=== PATIENT | female | born 1990 | race Asian ===

== ENCOUNTER 2019-01-24 15:34 | Emergency (ER) | payer OTHER ==
[2019-01-24 16:17] LABS: Absolute Lymphocytes (CBC) 2.6 K/uL (0.7-4.9); Basophils % 0.3 % (0-1.3); Hematocrit 40.8 % (36.0-45.0); Lymphocytes % 39.7 % (15.3-44.8); RBC Red Blood Cell Count 4.97 M/uL (3.86-4.86)
[2019-01-24 16:26] LABS: Protime INR 0.97
[2019-01-24 16:32] LABS: Barbiturates NEGATIVE (NEGATIVE); Benzodiazepines NEGATIVE (NEGATIVE); Cocaine NEGATIVE (NEGATIVE); METHAMPHETAM NEGATIVE (NEGATIVE); Methadone NEGATIVE (NEGATIVE); Opiates NEGATIVE (NEGATIVE); Phencyclidine NEGATIVE (NEGATIVE); THC Cannibis NEGATIVE (NEGATIVE)
--- NOTE | 2019-01-24 16:42 | RAD REPORT ---
EXAM DESCRIPTION: RAD - Chest Single View - 01/24/2019 4:34 pm CLINICAL HISTORY: CHEST PAIN Chest pain. COMPARISON: No comparisons FINDINGS: Portable technique limits examination quality. The lungs are grossly clear. The heart is normal in size. No displaced fractures. IMPRESSION: No acute intrathoracic process suspected.
[2019-01-24 16:44] LABS: ALT/SGPT 45 U/L (12-78); AST/SGOT 28 U/L (15-37); Albumin 3.8 g/dL (3.4-5.0); Alkaline Phosphatase 74 U/L (45-117); BUN Blood Urea Nitrogen 5 mg/dL (7-18); Bicarbonate 28 mmol/L (21-32); Bilirubin Direct 0.1 mg/dL (0-0.2); Bilirubin Total 0.5 mg/dL (0.2-1.0); Glucose Level 86 mg/dL (74-106); Magnesium 1.9 mg/dL (1.8-2.4); NT PRO-BNP 26 pg/mL (<125); Potassium 3.7 mmol/L (3.5-5.1); Protein, Total 7.4 g/dL (6.4-8.2); Sodium Level 139 mmol/L (136-145); Troponin (Emerg Dept Use Only) < 0.02 ng/mL (0.0-0.045)
--- NOTE | 2019-01-24 16:51 | EDPHYS ---
Physician Documentation [facility] Name: Renay Ceballos Age: 28 yrs Sex: Female : 1990 Arrival Date: 01/24/2019 Time: 15:37 Bed 7 Private MD: ED Physician Perfecto Tee HPI: 01/24 16:06 This 28 yrs old Female presents to ER via EMS with complaints of Chest Pain. pm1 16:06 The patient or guardian reports chest pain that is located primarily in the anterior pm1 aspect of right upper chest and anterior aspect of left upper chest. The pain does not radiate. Associated signs and symptoms: Pertinent negatives: abdominal pain, cough, dizziness, headache, nausea, palpitations, shortness of breath, vomiting. The chest pain is described as sharp. Modifying factors: the symptoms are aggravated by deep breath, emotionally stressful situations, palpation of area. Severity of pain: in the emergency department the pain is unchanged. The patient has not experienced similar symptoms in the past. Onset 2 days ago. Historical: - Allergies: 15:44 No Known Allergies; sv - PMHx: 15:44 Anxiety; Bipolar disorder; sv - Immunization history:: Adult Immunizations up to date. - Social history:: Smoking status: Patient/guardian denies using tobacco. - Ebola Screening: : No symptoms or risks identified at this time. ROS: 16:06 Constitutional: Negative for fever, chills, and weight loss, Eyes: Negative for injury, pm1 pain, redness, and discharge, ENT: Negative for injury, pain, and discharge, Neck: Negative for injury, pain, and swelling. 16:06 Respiratory: Negative for shortness of breath, cough, wheezing, and pleuritic chest pain, Abdomen/GI: Negative for abdominal pain, nausea, vomiting, diarrhea, and constipation, Back: Negative for injury and pain, : Negative for injury, bleeding, discharge, and swelling, MS/Extremity: Negative for injury and deformity, Skin: Negative for injury, rash, and discoloration, Neuro: Negative for headache, weakness, numbness, tingling, and seizure. 16:06 Cardiovascular: Positive for chest pain, Negative for edema, orthopnea, palpitations. Exam: 16:06 Constitutional: This is a well developed, well nourished patient who is awake, alert, pm1 and in no acute distress. Head/Face: Normocephalic, atraumatic. 16:06 Cardiovascular: Regular rate and rhythm with a normal S1 and S2. No gallops, murmurs, or rubs. Normal PMI, no JVD. No pulse deficits. Respiratory: Lungs have equal breath sounds bilaterally, clear to auscultation and percussion. No rales, rhonchi or wheezes noted. No increased work of breathing, no retractions or nasal flaring. Abdomen/GI: Soft, non-tender, with normal bowel sounds. No distension or tympany. No guarding or rebound. No evidence of tenderness throughout. Back: No spinal tenderness. No costovertebral tenderness. Full range of motion. Skin: Warm, dry with normal turgor. Normal color with no rashes, no lesions, and no evidence of cellulitis. MS/ Extremity: Pulses equal, no cyanosis. Neurovascular intact. Full, normal range of motion. 16:06 Chest/axilla: Inspection: normal, Palpation: tenderness, that is moderate, that totally reproduces the patient's complaints. 16:06 Neuro: Orientation: is normal, Motor: is normal, moves all fours, Gait: is steady, at a normal pace, without difficulty. Vital Signs: 15:44 BP 121 / 101; Pulse 66 MON; Resp 18; Temp 98; Pulse Ox 100% ; Weight 71.21 kg; Height 5 sv ft. 0 in. (152.40 cm); Pain 5/10; 16:35 BP 120 / 90; Pulse 60 MON; Resp 18; Pulse Ox 100% ; sv 15:44 Body Mass Index 30.66 (71.21 kg, 152.40 cm) sv 15:44 Sinus Rhythm sv 16:35 Sinus Rhythm sv MDM: 15:49 Patient medically screened. pm1 16:46 Data reviewed: vital signs. Data interpreted: Pulse oximetry: on room air is 100 %. pm1 Interpretation: normal. Counseling: I had a detailed discussion with the patient and/or guardian regarding: the historical points, exam findings, and any diagnostic results supporting the discharge/admit diagnosis, lab results, radiology results, the need for outpatient follow up, to return to the emergency department if symptoms worsen or persist or if there are any questions or concerns that arise at home. 01/24 15:57 Order name: Basic Metabolic Panel; Complete Time: 16:45 pm1 01/24 15:57 Order name: CBC with Diff; Complete Time: 16:20 pm1 01/24 15:57 Order name: LFT's; Complete Time: 16:45 pm1 01/24 15:57 Order name: Magnesium; Complete Time: 16:45 pm1 01/24 15:57 Order name: NT PRO-BNP; Complete Time: 16:45 pm1 01/24 15:57 Order name: PT-INR; Complete Time: 16:29 pm1 01/24 15:57 Order name: Troponin (emerg Dept Use Only); Complete Time: 16:45 pm1 01/24 15:57 Order name: XRAY Chest (1 view); Complete Time: 17:01 pm1 01/24 15:57 Order name: EKG; Complete Time: 16:06 pm1 01/24 15:57 Order name: UDS; Complete Time: 16:37 pm1 01/24 15:57 Order name: D-Dimer; Complete Time: 16:29 pm1 01/24 16:22 Order name: Urine Dipstick--Ancillary (enter results); Complete Time: 17:22 bd 01/24 16:23 Order name: Urine --Ancillary (enter results); Complete Time: 17:22 bd 01/24 15:57 Order name: Cardiac monitoring; Complete Time: 16:07 pm1 01/24 15:57 Order name: EKG - Nurse/Tech; Complete Time: 15:59 pm1 01/24 15:57 Order name: IV Saline Lock; Complete Time: 16:07 pm1 01/24 15:57 Order name: Labs collected and sent; Complete Time: 16:07 pm1 01/24 15:57 Order name: O2 Per Protocol; Complete Time: 16:07 pm1 01/24 15:57 Order name: O2 Sat Monitoring; Complete Time: 16:07 pm1 01/24 15:57 Order name: Urine Dipstick-Ancillary (obtain specimen); Complete Time: 16:16 pm1 01/24 15:57 Order name: Urine Test (obtain specimen); Complete Time: 16:16 pm1 Administered Medications: 16:50 Drug: TORadol - Ketorolac 15 mg Route: IVP; Site: right antecubital; sv Disposition: 01/25 07:22 Co-signature as Attending Physician, Perfecto Tee MD. rn Disposition: 01/24/19 16:50 Discharged to Home. Impression: Chest pain, unspecified. - Condition is Stable. - Discharge Instructions: Nonspecific Chest Pain. - Prescriptions for Naprosyn 500 mg Oral Tablet - take 1 tablet by ORAL route 2 times per day As needed take with food; 30 tablet. - Work release form, Family Work Release, Medication Reconciliation Form, Thank You Letter, Antibiotic Education, Prescription Opioid Use form. - Follow up: Emergency Department; When: As needed; Reason: Worsening of condition. Follow up: Private Physician; When: 2 - 3 days; Reason: Recheck today's complaints, Continuance of care, Re-evaluation by your physician. - Problem is new. - Symptoms have improved. Signatures: Dispatcher [employer] EDSadia Hoffman RN Cristo Castellanos RN RN sg Nieto, Roman, MD MD rn Marinas, Patrick, MARCIA SPECIAL COLLECTIONS LIBRARIAN pm1 Corrections: (The following items were deleted from the chart) 01/24 17:16 16:50 01/24/2019 16:50 Discharged to Home. Impression: Chest pain, unspecified. sg Condition is Stable. Forms are Medication Reconciliation Form, Thank You Letter, Antibiotic Education, Prescription Opioid Use. Follow up: Emergency Department; When: As needed; Reason: Worsening of condition. Follow up: Private Physician; When: 2 - 3 days; Reason: Recheck today's complaints, Continuance of care, Re-evaluation by your physician. Problem is new. Symptoms have improved. pm1
--- NOTE | 2019-01-24 16:51 | ER ---
Nurse's Notes [facility] Name: Renay Ceballos Age: 28 yrs Sex: Female : 1990 Arrival Date: 01/24/2019 Time: 15:37 Bed 7 Private MD: Diagnosis: Chest pain, unspecified Presentation: 01/24 15:31 Presenting complaint: EMS states: pt was sitting in her office and started having sv substernal sharp chest pain, worse with breathing and radiates to the left top neck. Pt reports having a food allergy on Sat but was not seen. BP 108/70 HR-66 EKG-SR. Transition of care: patient was not received from another setting of care. Onset of symptoms was January 24, 2019. Risk Assessment: Do you want to hurt yourself or someone else? Patient reports no desire to harm self or others. Initial Sepsis Screen: Does the patient meet any 2 criteria? No. Patient's initial sepsis screen is negative. Does the patient have a suspected source of infection? No. Patient's initial sepsis screen is negative. Care prior to arrival: None. 15:31 Method Of Arrival: EMS: [facility] sv 15:31 Acuity: DAKOTA 2 sv Triage Assessment: 15:32 General: Appears in no apparent distress. uncomfortable, well developed, Behavior is sv calm, cooperative, appropriate for age. Pain: Complains of pain in mid-sternal area Pain currently is 5 out of 10 on a pain scale. Quality of pain is described as sharp, Pain began 1 hour ago. Is intermittent, Aggravated by breathing. Neuro: Level of Consciousness is awake, alert, obeys commands, Oriented to person, place, time, situation, Moves all extremities. Full function Gait is steady, Speech is normal. Cardiovascular: Patient's skin is warm and dry. Pulses are 3+ in right radial artery and left radial artery Rhythm is sinus rhythm. Respiratory: Respiratory effort is even, unlabored, Respiratory pattern is regular, symmetrical. Derm: Skin is pink, warm \T\ dry. Historical: - Allergies: 15:44 No Known Allergies; sv - PMHx: 15:44 Anxiety; Bipolar disorder; sv - Immunization history:: Adult Immunizations up to date. - Social history:: Smoking status: Patient/guardian denies using tobacco. - Ebola Screening: : No symptoms or risks identified at this time. Screenin:30 Abuse screen: Denies threats or abuse. Denies injuries from another. Nutritional sv screening: No deficits noted. Tuberculosis screening: No symptoms or risk factors identified. Fall Risk None identified. Assessment: 16:30 Reassessment: Patient appears in no apparent distress at this time. No changes from sv previously documented assessment. Patient and/or family updated on plan of care and expected duration. Pain level reassessed. Patient is alert, oriented x 3, equal unlabored respirations, skin warm/dry/pink. Vital Signs: 15:44 BP 121 / 101; Pulse 66 MON; Resp 18; Temp 98; Pulse Ox 100% ; Weight 71.21 kg; Height 5 sv ft. 0 in. (152.40 cm); Pain 5/10; 16:35 BP 120 / 90; Pulse 60 MON; Resp 18; Pulse Ox 100% ; sv 15:44 Body Mass Index 30.66 (71.21 kg, 152.40 cm) sv 15:44 Sinus Rhythm sv 16:35 Sinus Rhythm sv ED Course: 15:31 Patient maintains SpO2 saturation greater than 95% on room air. sv 15:35 Patient has correct armband on for positive identification. Placed in gown. Bed in low sv position. Call light in reach. child monitor on. Pulse ox on. NIBP on. Door closed. Warm blanket given. Head of bed elevated. 15:37 Patient arrived in ED. sv 15:38 Sadia Hyde, EMELI is Primary Nurse. sv 15:43 Triage completed. sv 15:44 Arm band placed on. sv 15:48 Gabe Franklin NP is PHCP. pm1 15:48 Perfecto Tee MD is Attending Physician. pm1 15:55 EKG done, by certified endoscopy technician. reviewed by Perfecto Tee MD. tc 16:06 Initial lab(s) drawn, by pr, sent to lab. Inserted saline lock: 20 gauge in right ms antecubital area, using aseptic technique. Blood collected. 16:16 Urine collected: clean catch specimen, clear, Amount Voided: 60mL. ms 16:31 Awaiting lab results, Awaiting for x-ray. sv 16:34 XRAY Chest (1 view) In Process Unspecified. EDMS 17:10 No provider procedures requiring assistance completed. IV discontinued, intact, sg bleeding controlled, No redness/swelling at site. Pressure dressing applied. Administered Medications: 16:50 Drug: TORadol - Ketorolac 15 mg Route: IVP; Site: right antecubital; sv Outcome: 16:50 Discharge ordered by . pm1 17:10 Discharged to home ambulatory, with family. sg 17:10 Condition: good 17:10 Discharge instructions given to patient, Instructed on discharge instructions, follow up and referral plans. medication usage, safety practices, Demonstrated understanding of instructions, follow-up care, medications, Prescriptions given X 1. 17:16 Patient left the ED. sg Signatures: Dispatcher [employer] EDMS Sadia Hyde RN RN sv Cristo Hager RN RN sg Amanda Aguirre ms Isabel Moore, record keeper EKG Ttc Gabe Franklin, MARCIA TYPE COPY EXAMINER pm1 Corrections: (The following items were deleted from the chart) 15:44 15:31 Acuity: DAKOTA 3 sv sv 16:35 15:44 BP 121 / 101; Pulse 66bpm; Resp 18bpm; Pulse Ox 100%; Temp 98F; 71.21 kg; Height sv 5 ft. 0 in.; BMI: 30.6; Pain 5/10; sv 18:21 17:10 Discharge instructions given to patient, Instructed on discharge instructions, sg follow up and referral plans. medication usage, safety practices, Demonstrated understanding of instructions, follow-up care, medications, Prescriptions given X 2, sg
[2019-01-24] MEDS ORDERED: KETOROLAC 30 MG/ML INJ ONE (16:53)
[2019-01-24 17:07] LABS: Urine Blood 2+ (NEG); Urine Glucose NEGATIVE (NEG); Urine Protein NEGATIVE (NEG); Urine Specific Gravity 1.015 (1.005-1.030)
[2019-01-24 22:31] VITALS: TEMP 98; O2SAT 100
[2019-01-24 22:33] VITALS: BP 120/90
--- NOTE | 2019-01-25 08:03 | EKG ---
Test Date: 2019-01-24 Test Time: 15:45:39 Machine Repair Person: ARMOND MEASUREMENT RESULTS: Intervals: Rate: 65 FL: 128 QRSD: 82 QT: 444 QTc: 461 [place]: P: 41 FL: 128 QRS: 23 T: 21 INTERPRETIVE STATEMENTS: Normal sinus rhythm Normal ECG No previous ECG available for comparison Electronically Signed On 01-25-19 08:02:20 PIGMENT PRESSER by Dimitry Yang
== END 2019-01-24 17:16 | disposition home or self-care (01) ==
LOC: ER 15:34
DX: R07.9 Chest pain, unspecified (principal)
CPT/HCPCS: 36415; 71045; 80048; 80076; 80307; 81003; 81025; 83735; 83880; 84484; 85025; 85379; 85610; 93005; 96374; 99285